=== PATIENT | male | born 1960 | race Caucasian/White ===

== ENCOUNTER 2020-01-07 09:57 | Day surgery (SDC) | payer OTHER ==
[2020-01-02 13:39] VITALS: BMI 28.3
[2020-01-07] MEDS ORDERED: Iothalamate Meglumine 60% 50 ML VIAL FS ONE (10:10)
[2020-01-07] MEDS ORDERED: Fentanyl 100 MCG/2 ML VIAL ONE (10:29)
--- NOTE | 2020-01-07 11:46 | OP ---
DATE OF PROCEDURE: 01/07/2020 PREOPERATIVE DIAGNOSIS: Left renal stone. POSTOPERATIVE DIAGNOSIS: Left renal stone. PROCEDURES PERFORMED: Left ureteroscopy, laser lithotripsy, basket extraction of stone, retrograde pyelogram, and 6 x 26 double-J ureteral stent placement without strings. ANESTHESIA: General. COMPLICATIONS: None. ESTIMATED BLOOD LOSS: Minimal. SPECIMEN: Left renal stone fragments. DESCRIPTION OF PROCEDURE: After informed consent, the patient was taken to the operating room, transferred to the table on his own power. Anesthesia was established. A time-out was performed, showing the correct patient, site, and procedure. Preoperative antibiotics were administered. He was prepped and draped in the lithotomy position. I began by inserting the rigid cystoscope through the urethra noting a normal course and caliber of the urethra with no obstruction noted in the prostate. The bladder was then systematically examined noting no mucosal abnormalities. The left ureteral orifice was cannulated with a wire, which was passed up to the level of the renal pelvis under fluoroscopic guidance noting a large stone in the renal pelvis on fluoroscopic image. I then passed a 35-cm access sheath over the wire into the proximal ureter and performed a retrograde pyelogram through this showing good filling of the renal pelvis. I then passed the flexible ureteroscope through the access sheath into the left renal pelvis, where the stone was easily identified. A 200 micron laser fiber was utilized to fragment this into several small pieces. The 1.9 cm Nitinol basket was used to retrieve the fragments, which were all passed off as specimen. The collecting system was then re-examined noting no clinically significant stone fragments remaining. A completion retrograde was performed and then the wire replaced before removing the scope and access sheath. A 6 x 26 double-J ureteral stent without strings was passed over the wire with a curl in the kidney and curl in the bladder under fluoroscopic guidance. All counts were correct at the end of the case. The patient was then awoken from anesthesia, transferred back to his hospital bed and taken to PACU in stable condition, where he was discharged home upon recovery. Job ID: [id number]
[2020-01-07] MEDS ORDERED: PROPOFOL 200 MG/20 ML VIAL ONE (14:14)
[2020-01-07] MEDS ORDERED: Ketorolac Tromethamine 30 MG/ML VIAL ONE (14:14)
[2020-01-07] MEDS ORDERED: Dexamethasone 20 MG/5 ML VIAL ONE (14:14)
[2020-01-07] MEDS ORDERED: Lidocaine 1% PF 5 ML VIAL ONE (14:14)
[2020-01-07] MEDS ORDERED: Ondansetron PF 4 MG/2 ML Vial ONE (14:14)
== END 2020-01-07 14:00 | disposition home or self-care (01) ==
LOC: SDC 09:57
PROVIDERS: ATTEND Urology
PROC: 0TC48ZZ Extirpation of Matter from Left Kidney Pelvis, Via Natural or Artificial Opening Endoscopic (ICD-10-PCS; principal; 2020-01-07)
PROC: 0T778DZ Dilation of Left Ureter with Intraluminal Device, Via Natural or Artificial Opening Endoscopic (ICD-10-PCS; principal; 2020-01-07)
DX: N20.0 Calculus of kidney (principal); Z79.899 Other long term (current) drug therapy; Z88.1 Allergy status to other antibiotic agents
CPT/HCPCS: 74420; 76000; 82365; 88300; 93005; 93010; J0690; J1100; J1885; J2405; J2704; J3010

== ENCOUNTER 2022-08-15 07:27 | Outpatient (CLI) | payer OTHER ==
[2022-08-15 08:35] LABS: Hemoglobin 14.7 g/dL (13.5-17.5); Mean Corpuscular HGB CONC 34.3 g/dL (32.0-36.0); Mean Corpuscular Hemoglobin 31.6 pg (27.0-33.0); Mean Platelet Volume 9.4 fl (7.4-10.4); Platelet Count 225 10x3/uL (150-450); RBC Distribution Width 12.1 % (11.5-14.5); Red Blood Cell (RBC) Count 4.65 10x6/uL (4.32-5.72); White Blood Cell (WBC) Count 5.6 10x3/uL (3.5-10.5)
[2022-08-15 09:08] LABS: INR-International Normal Ratio 0.9; PTT 29.1 sec (22.0-33.0); Prothrombin Time 10.2 sec (9.5-12.1)
[2022-08-15 09:09] LABS: Anion Gap 15 mmol/L (10-20); BUN (Urea Nitrogen) 15 mg/dL (8.4-25.7); Calc. Creatinine Clearance 0 mL/min (70-130); Carbon Dioxide 27 mmol/L (23-31); Chloride 104 mmol/L (98-107); Estimated GFR 97; Glucose 91 mg/dL (80-115); Potassium 4.6 mmol/L (3.5-5.1); Sodium 141 mmol/L (136-145)
== END 2022-08-15 07:28 | disposition home or self-care (01) ==
LOC: LABBT 07:27
PROVIDERS: ATTEND Surgery
DX: Z01.818 Encounter for other preprocedural examination (principal); M50.10 Cervical disc disorder with radiculopathy, unspecified cervical region; M48.02 Spinal stenosis, cervical region
CPT/HCPCS: 80048; 85027; 85610; 85730; 93005; 93010

== ENCOUNTER 2022-08-15 07:30 | Inpatient (IN) | payer OTHER ==
[2022-08-18] MEDS ORDERED: Fentanyl 250 MCG/5 ML VIAL ONE (08:40)
[2022-08-18] MEDS ORDERED: Thrombin 5000 UNITS/5 ML VIAL ONE (08:49)
[2022-08-18] MEDS ORDERED: CEFAZOLIN 2 GM VIAL ONE (08:49)
[2022-08-18] MEDS ORDERED: Sodium Chloride 0.9% 100 ML ONE (08:50)
[2022-08-18 09:37] LABS: SARS-CoV-2 NAA Rapid Test Not Detected (NotDetected)
[2022-08-18] MEDS ORDERED: Rocuronium Bromide 10 MG/ML (10ML VIAL) ONE (10:13)
[2022-08-18] MEDS ORDERED: Lidocaine 1% PF 5 ML VIAL ONE (10:13)
[2022-08-18] MEDS ORDERED: Dexamethasone 20 MG/5 ML VIAL ONE (10:13)
[2022-08-18] MEDS ORDERED: PROPOFOL 200 MG/20 ML VIAL ONE (10:13)
[2022-08-18] MEDS ORDERED: Ondansetron PF 4 MG/2 ML Vial ONE (10:13)
[2022-08-18] MEDS ORDERED: Esmolol 100 MG/10 ML VIAL ONE (10:13)
[2022-08-18] MEDS ORDERED: Albuterol HFA (OR) 200 PUFF INH ONE (10:13)
[2022-08-18] MEDS ORDERED: SUGAMMADEX SODIUM 200 MG/2 ML VIAL ONE (12:20)
[2022-08-18] MEDS ORDERED: Ondansetron PF 4 MG/2 ML Vial IVP PRN (12:35)
[2022-08-18] MEDS ORDERED: HYDROcodone/Acetaminophen 7.5/325 mg Tablet PO PRN (12:35)
[2022-08-18] MEDS ORDERED: traMADol HCl 50 MG TAB PO PRN (12:35)
[2022-08-18] MEDS ORDERED: Acetaminophen/Codeine 30-300mg Tablet PO PRN (12:35)
[2022-08-18] MEDS ORDERED: Acetaminophen 325 MG TAB PO PRN (12:35)
[2022-08-18] MEDS ORDERED: diphenhydrAMINE 25 MG CAP PO PRN (12:35)
[2022-08-18] MEDS ORDERED: Cyclobenzaprine 10 MG TAB PO PRN (12:38)
[2022-08-18] MEDS ORDERED: hydrALAZINE 20 MG/ML VIAL SLOW IVP PRN (12:38)
[2022-08-18] MEDS ORDERED: Ondansetron HCl/PF 4 MG/2 ML Vial IVP PRN (12:48)
[2022-08-18] MEDS ORDERED: Promethazine HCl 25 MG/ML VIAL IM PRN (12:48)
[2022-08-18] MEDS ORDERED: PACU-Morphine 4MG/ML VIAL SLOW IVP PRN (12:48)
[2022-08-18] MEDS ORDERED: Morphine Sulfate 2 MG/ML SYRINGE SLOW IVP PRN (12:48)
[2022-08-18] MEDS ORDERED: HYDROmorphone 2 MG/ML VIAL SLOW IVP PRN (12:48)
[2022-08-18] MEDS ORDERED: Fentanyl 100 MCG/2 ML VIAL ONE (13:16)
[2022-08-18] MEDS: Morphine 2 MG/ML VIAL SLOW IVP PRN ×3 (14:34→20:37)
[2022-08-18] MEDS: Sodium Chloride 0.9% 1,000 ML IV SCH (14:41)
[2022-08-18] MEDS: Gabapentin 300 MG CAP PO SCH ×3 (15:03→20:40)
[2022-08-18 15:16] VITALS: BMI 29.1
[2022-08-18] MEDS: CEFAZOLIN 2 GM in Sodium Chloride 0.9% 100 ML IVPB SCH (17:16)
[2022-08-18] MEDS ORDERED: Divalproex Sodium DR 500 MG TAB PO SCH (21:00)
[2022-08-18] MEDS ORDERED: Atorvastatin Calcium 20 MG TAB PO SCH (21:00)
[2022-08-18] MEDS ORDERED: Hydrocodone-Acetamin 15 ML UDCUP PO PRN (23:13)
[2022-08-18] MEDS ORDERED: Divalproex Sodium 125 mg Sprinkle Capsule PO SCH (23:15)
[2022-08-19] MEDS: CEFAZOLIN 2 GM in Sodium Chloride 0.9% 100 ML IVPB SCH ×2 (00:41→09:11)
[2022-08-19] MEDS: Sodium Chloride 0.9% 1,000 ML IV SCH (04:55)
[2022-08-19] MEDS ORDERED: Divalproex Sodium 125 mg Sprinkle Capsule PO SCH (09:00)
[2022-08-19] MEDS ORDERED: Amlodipine 10 MG TAB PO SCH (09:00)
[2022-08-19] MEDS: Gabapentin 300 MG CAP PO SCH (09:12)
[2022-08-19 09:51] VITALS: BP 170/89; TEMP 97.8
== END 2022-08-19 11:40 | disposition home or self-care (01) | DRG 473 ==
LOC: SURG A 08-18 07:54
PROVIDERS: ADMIT Surgery; ATTEND Surgery
PROC: 0RG20A0 Fusion of 2 or more Cervical Vertebral Joints with Interbody Fusion Device, Anterior Approach, Anterior Column, Open Approach (ICD-10-PCS; principal; 2022-08-18)
PROC: 01N10ZZ Release Cervical Nerve, Open Approach (ICD-10-PCS; 2022-08-18)
PROC: 00NW0ZZ Release Cervical Spinal Cord, Open Approach (ICD-10-PCS; 2022-08-18)
PROC: 0RB30ZZ Excision of Cervical Vertebral Disc, Open Approach (ICD-10-PCS; 2022-08-18)
DX: M48.02 Spinal stenosis, cervical region (principal); M54.12 Radiculopathy, cervical region; E78.5 Hyperlipidemia, unspecified; I10 Essential (primary) hypertension; G43.909 Migraine, unspecified, not intractable, without status migrainosus; F17.210 Nicotine dependence, cigarettes, uncomplicated; F32.A Depression, unspecified; Z20.822 Contact with and (suspected) exposure to COVID-19; Z96.611 Presence of right artificial shoulder joint; Z96.612 Presence of left artificial shoulder joint; Z90.5 Acquired absence of kidney; Z88.1 Allergy status to other antibiotic agents
CPT/HCPCS: C1713; C1768; J1100; J2272; J2405; J2704; J3010; J3490; J7050; U0002

== ENCOUNTER 2022-08-20 21:05 | Inpatient (IN) | payer OTHER ==
[~2022-08-20 21:05] MED LIST: Iopamidol-370 76% 500 ML 1 ML ONE
[2022-08-20] MEDS ORDERED: Morphine 4 MG/ML VIAL ONE (22:27)
[2022-08-20] MEDS ORDERED: Ondansetron PF 4 MG/2 ML Vial ONE (22:35)
[2022-08-20 22:45] LABS: #Basophils 0.1 thou/uL (0.0-0.2); #Lymphocytes 2.9 thou/uL (1.20-3.40); #Monocytes 1.6 thou/uL (0.11-0.59); #Neutrophils 8.5 thou/uL (1.40-6.50); %Basophils 0.4 % (0.0-1.0); %Eosinophils 0.2 % (0.0-10.0); %Lymphocytes 22.3 % (21.0-51.0); %Monocytes 12.1 % (0.0-10.0); Hemoglobin 15.6 g/dL (14.0-18.0); Mean Corpuscular HGB CONC 34.4 g/dL (32.0-36.0); Mean Corpuscular Hemoglobin 33.1 pg (27.0-31.0); Mean Platelet Volume 7.7 fL (7.4-10.4); Platelet Count 225 10x3/uL (130-400); RBC Distribution Width 11.7 % (11.5-14.5); Red Blood Cell (RBC) Count 4.73 mill/uL (4.70-6.10); White Blood Cell (WBC) Count 13.1 10x3/uL (4.8-10.8)
[2022-08-20 22:54] LABS: PTT 34.9 sec (22.9-36.1); Prothrombin Time 13.4 sec (12.0-14.7)
[2022-08-20 23:05] LABS: ALT (SGPT) 24 U/L (8-55); AST (SGOT) 18 U/L (5-34); Albumin 4.3 g/dL (3.4-4.8); Alkaline Phosphatase 57 U/L (40-110); Anion Gap 14 mmol/L (10-20); BUN (Urea Nitrogen) 16 mg/dL (8.4-25.7); Bilirubin, Total 2.3 mg/dL (0.2-1.2); Calc. Creatinine Clearance 0 mL/min (70-130); Calcium 9.5 mg/dL (7.8-10.44); Carbon Dioxide 26 mmol/L (23-31); Chloride 101 mmol/L (98-107); Estimated GFR 99; Globulin 3.1 g/dL (2.4-3.5); Glucose 101 mg/dL (80-115); Potassium 3.8 mmol/L (3.5-5.1); Protein, Total 7.4 g/dL (5.8-8.1); Sodium 137 mmol/L (136-145)
[2022-08-21] MEDS ORDERED: Dexamethasone 10 MG/ML VIAL ONE (00:51)
[2022-08-21] MEDS ORDERED: Acetaminophen 325 MG TAB PO PRN (01:12)
[2022-08-21] MEDS ORDERED: diphenhydrAMINE 50 MG/ML VIAL IVP PRN (01:12)
[2022-08-21] MEDS ORDERED: Prochlorperazine 10 MG/2 ML VIAL IM PRN (01:12)
[2022-08-21] MEDS ORDERED: Morphine 4 MG/ML VIAL ONE (01:23)
[2022-08-21 02:25] VITALS: BMI 29.9
[2022-08-21] MEDS: Morphine 2 MG/ML VIAL SLOW IVP PRN ×4 (02:38→23:12)
[2022-08-21] MEDS: Sodium Chloride 0.9% 1,000 ML IV SCH ×2 (02:38→16:28)
[2022-08-21] MEDS: Ondansetron PF 4 MG/2 ML Vial IVP PRN (05:20)
[2022-08-21] MEDS: Dexamethasone 4 mg/ml Vial SLOW IVP SCH ×4 (05:20→23:13)
[2022-08-22] MEDS ORDERED: Ketorolac Tromethamine 30 MG/ML VIAL IVP PRN (01:50)
[2022-08-22] MEDS: Ketorolac Tromethamine 30 MG/ML VIAL IVP PRN ×3 (02:03→20:37)
[2022-08-22] MEDS: Sodium Chloride 0.9% 1,000 ML IV SCH ×2 (05:22→17:28)
[2022-08-22] MEDS: Dexamethasone 4 mg/ml Vial SLOW IVP SCH ×3 (05:22→17:28)
[2022-08-22] MEDS ORDERED: Scopolamine 1.5 mg/72 hour Patch TD SCH (13:30)
[2022-08-22] MEDS ORDERED: Pantoprazole 40 MG VIAL IVP SCH (15:15)
[2022-08-22] MEDS: Ondansetron PF 4 MG/2 ML Vial IVP PRN (17:28)
[2022-08-22] MEDS ORDERED: hydrALAZINE 20 MG/ML VIAL SLOW IVP PRN (17:45)
[2022-08-22] MEDS ORDERED: Bisacodyl 10 MG SUPP PR PRN (17:46)
[2022-08-23] MEDS: Dexamethasone 4 mg/ml Vial SLOW IVP SCH ×5 (00:21→23:09)
[2022-08-23] MEDS: Sodium Chloride 0.9% 1,000 ML IV SCH ×2 (05:59→23:09)
[2022-08-23] MEDS: Pantoprazole 40 MG VIAL IVP SCH (08:55)
[2022-08-24] MEDS: Dexamethasone 4 mg/ml Vial SLOW IVP SCH ×2 (05:24→12:40)
[2022-08-24] MEDS ORDERED: Acetaminophen/Codeine 30-300mg Tablet PO PRN (07:36)
[2022-08-24] MEDS ORDERED: tiZANidine HCl 4 MG TAB PO PRN (07:36)
[2022-08-24] MEDS ORDERED: HYDROcodone/Acetaminophen 5/325 mg Tablet PO PRN (07:36)
[2022-08-24] MEDS ORDERED: Atorvastatin Calcium 40 MG TAB PO SCH (09:00)
[2022-08-24] MEDS ORDERED: Amlodipine 10 MG TAB PO SCH (09:00)
[2022-08-24] MEDS ORDERED: Non-Formulary Item 1 EACH (Gabapentin [Gabapentin] 600 MG Tablet) PO SCH (09:00)
[2022-08-24] MEDS ORDERED: Divalproex Sodium DR 500 MG TAB PO SCH (09:00)
[2022-08-24] MEDS ORDERED: Divalproex Sodium 250 MG (DR) TAB PO SCH ×3 (10:30→21:00)
[2022-08-24] MEDS: Gabapentin 300 MG CAP PO SCH ×2 (10:44→16:27)
[2022-08-24] MEDS: Sodium Chloride 0.9% 1,000 ML IV SCH (10:46)
[2022-08-24] MEDS: Pantoprazole 40 MG VIAL IVP SCH (10:46)
[2022-08-24 16:21] VITALS: BP 139/86; TEMP 98
[2022-08-24] MEDS ORDERED: Atorvastatin Calcium 20 MG TAB PO SCH (21:00)
[2022-08-25] MEDS ORDERED: Dexamethasone 4 mg/ml Vial SLOW IVP SCH (06:00)
[2022-08-27] MEDS ORDERED: Dexamethasone 4 mg/ml Vial SLOW IVP SCH (06:00)
[2022-08-28] MEDS ORDERED: Dexamethasone 4 mg/ml Vial SLOW IVP SCH (09:00)
== END 2022-08-24 17:58 | disposition home or self-care (01) | DRG 392 ==
LOC: ERS 21:05 → SJJU 08-21 01:12 → OBSVTOIN 08-23 06:51
PROVIDERS: ADMIT Neurological Surgery; ATTEND Neurological Surgery
DX: R13.10 Dysphagia, unspecified (principal); M96.842 Postprocedural seroma of a musculoskeletal structure following a musculoskeletal system procedure; Z20.822 Contact with and (suspected) exposure to COVID-19; Y83.8 Other surgical procedures as the cause of abnormal reaction of the patient, or of later complication, without mention of misadventure at the time of the procedure; G43.909 Migraine, unspecified, not intractable, without status migrainosus; I10 Essential (primary) hypertension; Z79.899 Other long term (current) drug therapy; Z88.1 Allergy status to other antibiotic agents; Z98.1 Arthrodesis status
CPT/HCPCS: 70491; 80053; 85025; 85610; 85730; 96374; 96375; 96376; C9113; G0378; J1100; J1885; J2270; J2272; J2405; J7050; Q9967

== ENCOUNTER 2022-09-26 09:26 | Outpatient (CLI) | payer OTHER | END 2022-09-26 09:27 | disposition home or self-care (01) | LOC: SCSRAD 09:26 | PROVIDERS: ATTEND Physician Assistant | DX: M50.30 Other cervical disc degeneration, unspecified cervical region (principal); Z98.890 Other specified postprocedural states; M47.812 Spondylosis without myelopathy or radiculopathy, cervical region | CPT/HCPCS: 72040 ==